=== PATIENT | male | born 1995 | race Caucasian/White ===

== ENCOUNTER 2020-05-21 15:41 | Emergency (ER) | payer SELFPAY ==
[~2020-05-21] VITALS: Ht 170.2 cm; Wt 59.9 kg
[2020-05-21 15:50] VITALS: BP 112/69
[2020-05-21] MEDS ORDERED: LIDOCAINE-MPF 1%, 5ML INFIL ONE (17:00)
[2020-05-21] MEDS ORDERED: LIDOCAINE-MPF 1%, 5ML ONE (17:03)
--- NOTE | 2020-05-21 17:04 | NUR ---
Donna LOW at bedside to administer lidocaine to pt's wound.
[2020-05-21] MEDS ORDERED: NEOSPORIN OINT. PKT 1 PACKET ONE (17:47)
--- NOTE | 2020-05-21 17:48 | NUR ---
Jd EDTA at bedside to dress wound
== END 2020-05-21 18:02 | disposition home or self-care (01) ==
LOC: ED 18:00
DX: S01.81XA Laceration without foreign body of other part of head, initial encounter (principal); F17.200 Nicotine dependence, unspecified, uncomplicated; W18.39XA Other fall on same level, initial encounter; Y93.79 Activity, other specified sports and athletics; Y92.488 Other paved roadways as the place of occurrence of the external cause; Y99.8 Other external cause status
CPT/HCPCS: 12052; 99284